=== PATIENT | male | born 1970 | race Two or more races ===

== ENCOUNTER 2020-09-12 15:37 | Emergency (ER) | payer SELFPAY ==
[~2020-09-12] VITALS: Ht 175.3 cm; Wt 73.0 kg
[2020-09-12 15:39] VITALS: BP 136/82
== END 2020-09-12 16:51 | disposition home or self-care (01) ==
LOC: ER 15:37
DX: F15.10 Other stimulant abuse, uncomplicated (principal); J45.909 Unspecified asthma, uncomplicated
CPT/HCPCS: 99283; Z7610